=== PATIENT | female | born 1985 | race African-American/Black ===

== ENCOUNTER 2017-05-09 12:00 | Emergency (ER) | payer MEDICAID, OTHER ==
[~2017-05-09] VITALS: Ht 165.1 cm; Wt 86.2 kg
[2017-05-09 13:34] VITALS: BP 118/77
== END 2017-05-09 13:52 | disposition home or self-care (01) ==
LOC: ER 12:00
DX: G56.02 Carpal tunnel syndrome, left upper limb (principal)
CPT/HCPCS: 73110; 81025

== ENCOUNTER 2018-12-11 05:20 | Emergency (ER) | payer MEDICAID ==
[~2018-12-11] VITALS: Ht 165.1 cm; Wt 83.9 kg
[2018-12-11 06:48] VITALS: BP 103/61
== END 2018-12-11 07:27 | disposition left against medical advice (07) ==
LOC: ER 05:20
DX: N89.8 Other specified noninflammatory disorders of vagina (principal)